=== PATIENT | male | born 1945 | race Caucasian/White ===

== ENCOUNTER 2021-04-22 04:49 | Emergency (ER) | payer MEDICARE, BC ==
[~2021-04-22] VITALS: Ht 175.3 cm; Wt 82.0 kg
--- NOTE | 2021-04-22 06:48 | NUR ---
Pt escorted to room 2.
[2021-04-22] MEDS ORDERED: SOTROVIMAB 500 MG in NS 100ml IV soln IV ONE (07:40)
[2021-04-22 09:12] VITALS: BP 148/83
== END 2021-04-22 09:15 | disposition home or self-care (01) ==
LOC: ER 04:50
DX: U07.1 COVID-19 (principal); R05.9 Cough, unspecified; I10 Essential (primary) hypertension; K21.9 Gastro-esophageal reflux disease without esophagitis; J45.909 Unspecified asthma, uncomplicated; Z90.49 Acquired absence of other specified parts of digestive tract
CPT/HCPCS: 87635; 99284; C9803; J3490; M0247; Q0247